=== PATIENT | male | born 1995 | race Caucasian/White ===

== ENCOUNTER 2017-06-07 12:33 | Emergency (ER) | payer BC ==
[2017-06-07] MEDS ORDERED: Metoclopramide 10 MG/2 ML SDV IVPUSH ONE (12:47)
--- NOTE | 2017-06-07 12:47 | EDM.PDOC ---
ED HPI GENERAL MEDICAL PROBLEM - General Chief Complaint: Gastrointestinal Problem Stated Complaint: VOMITING Time Seen by Provider: 06/07/17 12:46 Source of Information: Reports: Patient, Family (Friend) History Limitations: Reports: No Limitations - History of Present Illness INITIAL COMMENTS - FREE TEXT/NARRATIVE: 21-year-old male attends the ED with sudden onset of nausea vomiting starting about 0800 hrs. this morning. 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 He states he doesn't think that he came in contact with anybody with the flu. He did eat out at a gas station yesterday of a chicken burger type product. He's had no diarrhea. She's had some chills. He states initial emesis didn't contain undigested food and subsequent he has been dark bilious. No blood. He's had no previous abdominal surgery. States any keep water down at this point time. Onset: Today Onset Date: 06/07/17 Onset Time: 08:00 Duration: Hour(s): Location: Reports: Abdomen (Intractable nausea and vomiting) Quality: Reports: Other (Currently in no pain.) Severity: Moderate Improves with: Reports: None Worsens with: Reports: Other Context: Reports: Other (Possible bad food exposure.). Denies: Activity ( Trying to drink water or eat.), Exercise, Lifting, Sick Contact, Trauma Associated Symptoms: Reports: Fever/Chills (Chills with no fever), Loss of Appetite, Nausea/Vomiting. 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 (see below) (None is nothing will stay down.) - Related Data Allergies Allergy/AdvReac Type Severity Reaction Status Date / Time azithromycin [From Zithromax] Allergy Cannot Verified 06/07/17 12:40 Remember Home Meds: Home Meds Citalopram [Citalopram HBr] 20 mg PO DAILY 06/07/17 [History] Ondansetron [Zofran] 4 mg BUCCAL Q6H PRN #6 tab 06/07/17 [Rx] Past Medical History Psychiatric History: Reports: Depression Social & Family History - Living Situation & Occupation Living situation: Reports: Single Occupation: Employed ED ROS GENERAL - Review of Systems Review Of Systems: See Below Constitutional: Reports: Chills, Weakness, Decreased Appetite. Denies: Malaise , Fatigue, Weight Loss HEENT: Reports: No Symptoms Respiratory: Reports: No Symptoms Cardiovascular: Reports: No Symptoms Endocrine: Reports: No Symptoms GI/Abdominal: Reports: Abdominal Pain (Some epigastric pain initially that is improved with vomiting.), Decreased Appetite (Intractable nausea and vomiting since 0800 hrs. this morning.), Nausea, Vomiting. Denies: Diarrhea : Reports: No Symptoms Musculoskeletal: Reports: No Symptoms Skin: Reports: No Symptoms Neurological: Reports: No Symptoms Psychiatric: Reports: No Symptoms Hematologic/Lymphatic: Reports: No Symptoms Immunologic: Reports: No Symptoms ED EXAM, GI/ABD - Physical Exam Exam: See Below Exam Limited By: No Limitations General Appearance: Alert, WD/WN, Other (Slightly pallid in appearance.) Eyes: Bilateral: Normal Appearance (No jaundice.) Throat/Mouth: Other Head: Atraumatic, Normocephalic (Tongue and oral cavity are moist.) Neck: Normal Inspection, Supple, Non-Tender. No: Lymphadenopathy (L), Lymphadenopathy (R) Respiratory/Chest: No Respiratory Distress, Lungs Clear, Normal Breath Sounds, No Accessory Muscle Use Cardiovascular: Normal Peripheral Pulses, No Murmur, Bradycardia GI/Abdominal Exam: Non-Tender, No Organomegaly, No Distention, No Abnormal Bruit , No Mass, Pelvis Stable, Abnormal Bowel Sounds (Male) Exam: No Hernia Back Exam: Normal Inspection, Full Range of Motion. No: CVA Tenderness (L), CVA Tenderness (R) Extremities: Normal Inspection, Normal Range of Motion, Non-Tender, No Pedal Edema Neurological: Alert, Oriented, CN II-XII Intact, Normal Cognition, Normal Gait Psychiatric: Normal Affect, Normal Mood Skin Exam: Warm, Dry, Intact, Pallor (Mild pallor) Course - Vital Signs Last Recorded V/S: Last Vital Signs Temp 36.9 C 06/07/17 12:41 Pulse 56 L 06/07/17 12:41 Resp 13 06/07/17 12:41 BP 132/83 06/07/17 12:41 Pulse Ox 98 06/07/17 12:41 - Orders/Labs/Meds Meds: Medications Discontinued Medications Generic Name Dose Route Start Last Admin Trade Name Freq PRN Reason Stop Dose Admin Dextrose/Sodium Chloride 1,000 mls @ 999 mls/hr 06/07/17 13:00 06/07/17 12:59 Dextrose 5%-Normal Saline IV 999 mls/hr ASDIRECTED CADE Administration Metoclopramide HCl 10 mg 06/07/17 12:47 06/07/17 12:57 Reglan IVPUSH 06/07/17 12:48 10 mg ONETIME ONE Administration - Radiology Interpretation Free Text/Narrative:: 21-year-old male attends the ED with nausea and vomiting since 0800 hrs. this morning. He felt a little nauseated before going to work at home in the [employer] this morning. Began vomiting at 0800 hrs. initially some undyed undigested food followed by ileus emesis. He's vomited 5 or 6 times and unable to keep down water at this time. He's feeling lightheaded dizzy and weak. He's had no diarrhea thus far. He did eat out yesterday at a gas station with a chicken burger. Debility of foodborne illness exist as he can't think of anybody else that he's been exposed to with a viral gastroenteritis. Plan IV D5 normal saline at open. Reglan 10 mg IV for now. - Re-Assessments/Exams Free Text/Narrative Re-Assessment/Exam: 06/07/17 14:08 patient has no further nausea and he is able to tolerate Gatorade per ora. I will therefore discharge him home on Zofran 4 mg sublingual every 4-6 hours necessary for nausea or vomiting. Advised clear fluid diet for the remainder today. Consent clear whether or not he is going to develop diarrhea not if it's foodborne illness. Note given of course to send him home from work today and possibly tomorrow as well. Departure - Departure Time of Disposition: 14:08 Disposition: Home, Self-Care 01 Clinical Impression: Nausea and vomiting in adult patient - Discharge Information Prescriptions: Ondansetron [Zofran] 4 mg BUCCAL Q6H PRN #6 tab PRN Reason: nausea or vomiting Instructions: Nausea and Vomiting, Adult Referrals: Allyn Mcleod [employer] [Primary Care Provider] - Forms: ED Department Discharge, ED Return to Work/School Form Additional Instructions: Evaluation the emergency room today in regards to acute onset of nausea and vomiting without diarrhea at this time. Possibility of foodborne illness exist which would be toxin mediated. Some people don't get diarrhea. At any rate she were treated with intravenous fluids to rehydrate you. You were given Reglan 10 mg IV to stop nausea and vomiting. Treatment at home is to sip on clear fluids such as Gatorade Powerade for the next 6 or 7 hours. When hungry made try soda crackers and advance to toast. May also then have broth soup or chicken rice , turkey noodle soup etc. Suggest no dairy products or apple juice or grape juice until you know for sure you're not going to develop diarrhea which would occur within the next 12 hours if it is going to. Off work of course the rest of today and if you vomit any further you should stay home from work tomorrow as well. May use Zofran 4 mg under the tongue every 4-6 hours needed for relief of nausea or vomiting. I would suggest taking Zofran under the tongue at approximately 1630 hrs. today or 4:30 and then see how things go.
[2017-06-07] MEDS ORDERED: Dextrose 5%-0.9% NaCl 1,000 ML IV SCH (13:00)
== END 2017-06-07 14:27 | disposition home or self-care (01) ==
LOC: JD.ED 12:33
DX: R11.2 Nausea with vomiting, unspecified (principal); Z88.1 Allergy status to other antibiotic agents
CPT/HCPCS: 96361; 96374; 99284; J2765; J7042